=== PATIENT | male | born 1990 | race Caucasian/White ===

== ENCOUNTER 2020-03-01 21:59 | Emergency (ER) | payer SELFPAY ==
--- NOTE | 2020-03-01 23:20 | EDM.PDOCBH ---
ED HPI GENERAL MEDICAL PROBLEM - General Chief Complaint: Behavioral/Psych Stated Complaint: ANXIETY TROUBLE Time Seen by Provider: 03/01/20 23:00 Source of Information: Reports: Patient History Limitations: Reports: No Limitations - History of Present Illness INITIAL COMMENTS - FREE TEXT/NARRATIVE: 29-year-old male with recurring symptoms of anxiety, palpitations, brief pains tightness in his abdomen and chest for the past couple weeks. He had a fairly thorough work-up in the [place] [facility] a week ago and he has a cardiology follow-up, but he is in tonight because the symptoms were recurring. No fevers or chills, no shortness of breath. He feels like there is a "delay" when he tries to take a breath. He looks anxious. Onset: Gradual Duration: Chronic (Used to get more symptoms when he was using marijuana) Associated Symptoms: Reports: Chest Pain, Malaise chest pain Pain Score (Numeric/FACES): 5 - Related Data Allergies Allergy/AdvReac Type Severity Reaction Status Date / Time hydrocodone Allergy Other Verified 03/01/20 22:34 Home Meds: Home Meds Ibuprofen 400 - 800 mg PO ASDIRECTED PRN 03/01/20 [History] Past Medical History HEENT History: Reports: Otitis Media Neurological History: Reports: Concussion Psychiatric History: Reports: Anxiety, Panic Attack, Suicide Attempt - Past Surgical History HEENT Surgical History: Reports: Myringotomy w Tube(s) Social & Family History - Tobacco Use Smoking Status *Q: Current Every Day Smoker Years of Tobacco use: 13 Packs/Tins Daily: 0.5 - Caffeine Use Caffeine Use: Reports: None - Recreational Drug Use Recreational Drug Use: No ED ROS GENERAL - Review of Systems Review Of Systems: See Below Constitutional: Denies: Fever, Chills, Malaise HEENT: Denies: Throat Pain Respiratory: Reports: Shortness of Breath. Denies: Pleuritic Chest Pain Cardiovascular: Reports: Palpitations GI/Abdominal: Reports: Abdominal Pain : Reports: No Symptoms Skin: Reports: No Symptoms Neurological: Reports: Dizziness. Denies: Headache Psychiatric: Reports: Anxiety ED EXAM, BEHAVIORAL HEALTH - Physical Exam Exam: See Below Exam Limited By: No Limitations General Appearance: Alert, Anxious Eye Exam: Bilateral Eye: Normal Inspection Head: Atraumatic Neck: Supple, Non-Tender Respiratory/Chest: Lungs Clear Cardiovascular: Regular Rate, Rhythm, Tachycardia GI/Abdominal: Soft, Non-Tender Extremities: Normal Inspection Neurological: Alert, No Motor/Sensory Deficits, Oriented x 3 Psychiatric: Other (Patient is very anxious and talkative) Skin Exam: Warm, Dry COURSE, BEHAVIORAL HEALTH COMP - Course Vital Signs: Last Vital Signs Temp 98.6 F 03/01/20 22:48 Pulse 95 03/01/20 22:48 Resp 18 03/01/20 22:48 BP 151/93 H 03/01/20 22:48 Pulse Ox 99 03/01/20 22:48 Orders, Labs, Meds: Laboratory Tests 03/01/20 03/01/20 Range/Units 23:16 23:16 Urine Color Yellow (YELLOW) Urine Appearance Clear (CLEAR) Urine pH 8.5 H (5.0-8.0) Ur Specific [place] 1.020 (1.008-1.030) Urine Protein Negative (NEGATIVE) mg/dL Urine Glucose (UA) Negative (NEGATIVE) mg/dL Urine Ketones Negative (NEGATIVE) mg/dL Urine Occult Blood Negative (NEGATIVE) Urine Nitrite Negative (NEGATIVE) Urine Bilirubin Negative (NEGATIVE) Urine Urobilinogen 0.2 (0.2-1.0) EU/dL Ur Leukocyte Esterase Negative (NEGATIVE) Urine RBC Not seen (0-5) Urine WBC Not seen (0-5) Ur Epithelial Cells Not seen Amorphous Sediment Many Urine Bacteria Not seen Urine Mucus Not seen Urine Opiates Screen Negative (NEGATIVE) Ur Oxycodone Screen Negative (NEGATIVE) Urine Methadone Screen Negative (NEGATIVE) Ur Propoxyphene Screen Negative (NEGATIVE) Ur Barbiturates Screen Negative (NEGATIVE) Ur Tricyclics Screen Negative (NEGATIVE) Ur Phencyclidine Scrn Negative (NEGATIVE) Ur Amphetamine Screen Negative (NEGATIVE) U Methamphetamines Scrn Negative (NEGATIVE) Urine MDMA Screen Negative (NEGATIVE) U Benzodiazepines Scrn Negative (NEGATIVE) U Cocaine Metab Screen Negative (NEGATIVE) U Marijuana (THC) Screen Negative (NEGATIVE) Re-Assessment/Re-Exam: Patient was placed on a school bus monitor and a UA was obtained. We will obtain records from [place] so blood test will not be repeated. UA and urine drug screen were negative. Patient was monitored for almost an hour and a half and remained in a normal sinus rhythm although when he got up to go to the bathroom he did become tachycardic fairly easily. We did not get records from [place] over the course of 2 hours, so the patient was discharged with 10 doses of Ativan to take up to 3 times a day and will recheck with his primary doctor this week to consider starting an SSRI. Departure - Departure Time of Disposition: 00:43 Disposition: Home, Self-Care 01 Clinical Impression: Anxiety about health, Palpitations - Discharge Information Instructions: Living With Anxiety Referrals: PCP,None [Primary Care Provider] - Forms: ED Department Discharge Care Plan Goals: Use antianxiety medicine up to 3 times a day if needed, and recheck next week to discuss with your primary provider daily preventative medicine to reduce anxiety in the future. Sepsis Event Note (ED) - Evaluation Sepsis Screening Result: No Definite Risk - Focused Exam Vital Signs: Vital Signs Temp Pulse Resp BP Pulse Ox 03/01/20 22:48 98.6 F 95 18 151/93 H 99 03/01/20 22:17 98.6 F 95 18 151/93 H 99
== END 2020-03-02 00:53 | disposition home or self-care (01) ==
LOC: JP.ED 21:59
DX: F41.9 Anxiety disorder, unspecified (principal); F17.210 Nicotine dependence, cigarettes, uncomplicated; Z88.5 Allergy status to narcotic agent
CPT/HCPCS: 80305-QW; 81001; 99283